=== PATIENT | female | born 1990 | race Caucasian/White ===

== ENCOUNTER 2016-09-19 23:10 | Inpatient (IN) | payer SELFPAY ==
[~2016-09-19] VITALS: Ht 172.7 cm; Wt 48.7 kg
[~2016-09-19 23:10] MED LIST: CIPR500T2 PO; OXYC-360 PO; PYRI200T4 PO; Z.0.NO CURRENT MEDS
[2016-09-20] MEDS ORDERED: MAGNESIUM HYDROXIDE SUSP 30 ML CUP PO PRN (02:15)
[2016-09-20] MEDS ORDERED: ALUMINUM/MAGNESIUM/SIMETH 30 ML CUP PO PRN (02:15)
[2016-09-20] MEDS ORDERED: LORazepam 2 MG/ML VIAL IM PRN (02:15)
[2016-09-20] MEDS ORDERED: LORazepam 1 MG TAB PO PRN (02:15)
[2016-09-20] MEDS ORDERED: traZODone HCL 50 MG TAB PO PRN (02:15)
[2016-09-20] MEDS ORDERED: BENZTROPINE MESYLATE 2 MG/2 ML VIAL IM PRN (02:15)
[2016-09-20 02:31] VITALS: BP 115/62; PULSE 83; RESP 16; TEMP 97.3; O2SAT 99
[2016-09-20] MEDS: NICOTINE 21 MG/24 HR PATCH T-DERMAL SCH (08:42)
[2016-09-20] MEDS: ACETAMINOPHEN 325 MG TAB PO PRN ×2 (09:07→18:45)
[2016-09-20 10:06] LABS: BHCG SCREEN QUALITATIVE LESS THAN 1 MIU/ML (0-5)
--- NOTE | 2016-09-20 14:32 | HHI.HP ---
Provisional Diagnosis Admission Date September 19, 2016 at 23:10 Richardson I. 1. PTSD, chronic 2. Mixed anxiety disorder 3. Mood disorder Richardson II. Deferred Richardson V. GAF is 30 presently Certification of Person's Competence To Provide Express and Informed Consent I have personally examined Alissa Regan , a person being served at [facility] on, September 20, 2016 14:18. Express and informed consent means consent voluntarily given in writing, by a competent person, after sufficient explanation and disclosure of the subject matter involved to enable the person to make a knowing and willful decision without any element of force, fraud, deceit, duress, or other form of constraint or coercion. This person is 18 years of age or older, is not now known to be incompetent to consent to treatment with a guardian advocate, and does not have a health care surrogate or proxy currently making medical treatment decisions. I have found this person to be one of the following: [x] Competent to provide express and informed consent, as defined above, for voluntary admission to this facility and is competent to provide express and informed consent for treatment. He/she has the consistent capacity to make well reasoned, willful, and knowing decisions concerning his or her medical or mental health treatment. The person fully and consistently understands the purpose of the admission for examination/placement and is fully capable of personally exercising all rights assured under [place] Incompetent to provide express and informed consent to voluntary admission, and this is incompetent to provide express and informed consent to treatment. The person must be transferred to involuntary status and a petition for a guardian advocate filed with the Circuit Court. [] Refusing to provide express and informed consent to voluntary admission but is competent to provide express and informed consent for treatment. The person must be discharged or transferred to involuntary status. Form shall be completed within 24 hours of a person's arrival at the receiving facility and filed in the clinical record of each person: 1. Admitted on a voluntary basis 2. Permitted to provide express and informed consent to his/her own treatment 3. Allowed to transfer from involuntary to voluntary status 4. Prior to permitting a person to consent to his or her own treatment after having been previously found incompetent to consent to treatment. History of Present Illness Capacity: Has Capacity HPI Ms. Regan is a 26-year-old female with a reported history of PTSD from the of her first born son who presents in transfer under a [place] act from [facility]. Documentation from [facility] reviewed. [place] act alleges that the patient intentionally passed out in a full bathtub and was endorsing suicidal ideation. Reviewing are on electronic medical record , I see no prior psychiatric contact within our system. Patient seen and examined with nurse. Chart reviewed. Case discussed with nursing staff. On my examination today, the patient presents as extremely anxious. She says that she has been experiencing nightmares, flashbacks and hyperarousal related to her posttraumatic stress. She also has been having the sensation of people walking up to her and seeing "pink dots." No other hallucinatory experiences. No delusional beliefs. She has been feeling tearful and somewhat depressed. She endorses recent suicidal ideation although she denies any urge to hurt herself on the inpatient psychiatric unit. Speech is somewhat pressured and thought process circumstantial, but this seems to have an anxious more than a hypomanic or manic quality. I can elicit no other symptoms of hypomania or marlon. The remainder of the psychiatric ROS is negative. Past psychiatric history: Patient reports a history of PTSD. She reports that she is prescribed Klonopin 2 or 3 times a day as well as Ativan twice a day by a psychiatrist based in [place] with whom she no longer follows. She says that she was admitted psychiatrically one or 2 years ago in [place]. She endorses a history of suicide attempt by trying to cut herself. She reports prior trials of Seroquel, doxepin and trazodone as well as Lamictal, and she is reportedly allergic to the last of these. Family history: The patient reports that her mother has a history of sleep difficulty and anxiety. No other reported family psychiatric history. Chemical dependency history: No reported abuse of drugs or alcohol. Social history: Patient is . She has a 3-year-old daughter. She reports that she lost her firstborn son. 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 She served in the [employer] but had a medical discharge. No reported access to guns or firearms. Review of Systems Except as stated in HPI: all other systems reviewed are Neg Past Psych History Psychological trauma history See above Violence risk - others (6 mos) Lower risk Violence risk - self (6 mos) Elevated Substance Abuse History Drugs/Alcohol past 12 months See above Past Family Social History Coded Allergies: No Known Allergies (Verified , 09/20/16) Past Medical History See electronic medical record Current Medications Medications (Trade) Dose Ordered Sig/Terence Route Start Time Stop Time Status Last Admin (Ativan) 1 mg Q6H PRN PO 09/20/16 02:15 09/20/16 09:07 (Ativan Inj) 1 mg Q6H PRN IM 09/20/16 02:15 (Cogentin) 1 mg Q12H PRN PO 09/20/16 02:15 (Cogentin Inj) 1 mg Q12H PRN IM 09/20/16 02:15 (Desyrel) 50 mg HS PRN PO 09/20/16 02:15 (Tylenol) 650 mg Q4H PRN PO 09/20/16 02:15 09/20/16 09:07 (Milk Of Magnesia Liq) 30 ml DAILY PRN PO 09/20/16 02:15 (Mag-Al Plus Susp Liq) 30 ml Q6H PRN PO 09/20/16 02:15 (Habitrol 21 Mg Patch.24 Hr) 1 patch DAILY T-DERMAL 09/20/16 09:00 09/20/16 08:42 Family History See above Social History See above Patient's Strengths (min. 2) In a monitored setting. Verbally fluent. Physical Exam Physical examination completed at referring hospital. On my examination today, the patient appears to be well-nourished and well-developed and in no acute physical distress. No motor abnormalities noted. No signs of withdrawal noted. Laboratories and vital signs reviewed: Vital Signs Vital Signs Date Time Temp Pulse Resp B/P Pulse Ox O2 Delivery O2 Flow Rate FiO2 09/20/16 02:31 97.3 83 16 115/62 99 Lab Results Laboratories from outside hospital reviewed: CBC is unremarkable. CMP is unremarkable. TSH is mildly elevated. Urinalysis reveals 11 white blood cells and 2+ leukocyte esterase. Urine toxicology positive for benzodiazepines. Alcohol level undetectable. Mental Status Examination Patient is casually dressed. She is well groomed. She is awake and alert and oriented 3. No evidence of delirium. No abnormal motor movements noted. Speech is somewhat pressured but otherwise within normal limits for tone and volume. Lying which and fund of knowledge seem average. Mood is somewhat depressed and affect is consistent with stated mood. Thought process circumstantial. No evident delusions. Some recent hallucinatory experiences as detailed above, no current audiovisual hallucinations. Endorses suicidal ideation without specific urge to hurt herself on the inpatient psychiatric unit. No homicidal ideation. Insight and judgment are fair. Assessment & Plan Problem List: (1) Chronic post-traumatic stress disorder (PTSD) ICD Code: F43.12 (2) Other mixed anxiety disorders ICD Code: F41.3 (3) Mood disorder ICD Code: F39 Assessment & Plan This is a 26-year-old female with psychiatric history as detailed above who presents in transfer from outside hospital under a [place] act. On my examination today, the patient reports symptoms consistent with high anxiety and posttraumatic stress. There also is an affective component, and I suspect this reflects unipolar depression more than bipolar depression although the latter is certainly in the differential. Patient also had thyroid abnormalities noted at outside hospital and so follow-up thyroid testing will be needed. Patient requires psychiatric hospitalization at this time for safety , observation and stabilization. Admit inpatient. Voluntary status. Check TFTs. I will treat initially as for anxiety/PTSD. Lexapro 10 mg daily. I will continue patient's Klonopin 1 mg 3 times daily as needed but will not additionally prescribe the Ativan. Instead, we'll try to use gabapentin off label for anxiety, 300 mg 3 times daily with plans to titrate to effect. Cogentin as needed for EPS, Benadryl as needed for sleep. Vitals every shift. Counselor to see. Disposition planning. Estimated length of stay: 5-7 days. Discharge Planning Pending psychiatric stabilization Request HC Surrog/Guard Advoc?: No Tim Jones MD September 20, 2016 14:32
[2016-09-20] MEDS ORDERED: diphenhydrAMINE HCL 50 MG CAP PO PRN (14:45)
[2016-09-20 16:49] LABS: FREE T4 1.03 NG/DL (0.76-1.46)
[2016-09-20 18:00] VITALS: BP 131/86; PULSE 100; RESP 16; TEMP 97.5; O2SAT 97
[2016-09-20] MEDS: ESCITALOPRAM OXALATE 10 MG TAB PO SCH (20:08)
[2016-09-21 06:32] VITALS: BP 147/87; PULSE 86; RESP 17; TEMP 97.7; O2SAT 95
[2016-09-21] MEDS ORDERED: ESCITALOPRAM OXALATE 10 MG TAB PO SCH (09:00)
[2016-09-21] MEDS: NICOTINE 21 MG/24 HR PATCH T-DERMAL SCH (09:00)
[2016-09-21 09:10] LABS: ANION GAP 6 MEQ/L (5-15); BICARBONATE 29.3 MEQ/L (21.0-32.0); BLOOD UREA NITROGEN 10 MG/DL (7-18); CHLORIDE 106 MEQ/L (98-107); GLOMERULAR FILTRATION RATE 101 ML/MIN (>89); HDL CHOLESTEROL 29.3 MG/DL (40.0-60.0); LDL CHOLESTEROL 105 MG/DL (0-99); SODIUM (NA) 141 MEQ/L (136-145)
[2016-09-21] MEDS: GABAPENTIN 300 MG CAP PO SCH ×3 (09:15→18:22)
[2016-09-21] MEDS: ESCITALOPRAM OXALATE 10 MG TAB PO SCH (09:15)
[2016-09-21] MEDS: clonazePAM 1 MG TAB PO PRN ×3 (09:26→22:00)
[2016-09-21 09:55] LABS: HEMOGLOBIN A1a 1.2 %; HEMOGLOBIN A1b 0.7 %; HEMOGLOBIN Ao 86.1 %; HEMOGLOBIN F 1.2 %; HEMOGLOBIN LA1C 1.8 %; HEMOGLOBIN P3 3.3 %
--- NOTE | 2016-09-21 11:11 | HHI.PYPN ---
Subjective Remarks Patient was seen and case discussed with nursing. Per nursing patient is taking part in activities and was noted to be less anxious. Patient is complaining of nausea when taking her medications, including with food. She is asking for medication. Has not had any vomiting. Complaining of which she describes as a night hair with flashbacks and nightmares last night. Says she has suicidal thoughts that are chronic, in the back of her head. Denies a plan or intent. Not eating well because she is a vegetarian Objective Alert: Yes [place]: Person, Place, Date, Situation Mood: Anxious, Depressed Affect: Other (anxious) Memory Intact: Immediate (intact) Hallucinations: Auditory (denies) Delusions: No Delusion Type: Other Suicidal: Ideation (denies) Homicidal: Ideation (denies) Insight/Judgment Fair Labs Test 09/21/16 08:00 Sodium Level 141 MEQ/L Potassium Level 4.0 MEQ/L Chloride Level 106 MEQ/L Carbon Dioxide Level 29.3 MEQ/L Anion Gap 6 MEQ/L Blood Urea Nitrogen 10 MG/DL Creatinine 0.71 MG/DL Estimat Glomerular Filtration 101 ML/MIN Rate Random Glucose 76 MG/DL Hemoglobin A1c 5.3 % Calcium Level 8.5 MG/DL Triglycerides Level 89 MG/DL Cholesterol Level 152 MG/DL LDL Cholesterol 105 MG/DL HDL Cholesterol 29.3 MG/DL Cholesterol/HDL Ratio 5.18 RATIO Vitals/IOs Vital Signs Date Time Temp Pulse Resp B/P Pulse Ox O2 Delivery O2 Flow Rate FiO2 09/21/16 06:32 97.7 86 17 147/87 95 Assessment & Plan Problem List: (1) Chronic post-traumatic stress disorder (PTSD) ICD Code: F43.12 (2) Other mixed anxiety disorders ICD Code: F41.3 (3) Mood disorder ICD Code: F39 Assessment & Plan Add when necessary Zofran for nausea. Nursing will work on getting her dietary requests accommodated. Continue current treatment plan Justification for Cont. Inpt. Patient will decompensate in a less restrictive setting Request HC Surrog/Guard Advoc?: No Ricki Samuels DO September 21, 2016 11:11
[2016-09-21] MEDS: ONDANSETRON ODT 4 MG TAB PO PRN ×3 (11:41→23:50)
[2016-09-21 21:47] VITALS: BP 141/95; PULSE 77; RESP 17; TEMP 98.6; O2SAT 96
[2016-09-21] MEDS: ACETAMINOPHEN 325 MG TAB PO PRN (23:51)
[2016-09-22 06:12] VITALS: BP 108/63; PULSE 76; RESP 16; TEMP 98
[2016-09-22] MEDS: GABAPENTIN 300 MG CAP PO SCH ×3 (08:38→17:00)
[2016-09-22] MEDS: ONDANSETRON ODT 4 MG TAB PO PRN (08:38)
[2016-09-22] MEDS: ESCITALOPRAM OXALATE 10 MG TAB PO SCH ×3 (08:38→08:59)
[2016-09-22] MEDS: ACETAMINOPHEN 325 MG TAB PO PRN (08:39)
[2016-09-22] MEDS: NICOTINE 21 MG/24 HR PATCH T-DERMAL SCH ×2 (08:58→09:14)
[2016-09-22] MEDS: clonazePAM 1 MG TAB PO PRN ×2 (09:14→15:30)
--- NOTE | 2016-09-22 14:41 | HHI.PYPN ---
Subjective Remarks Patient reports extreme anxiety and multiple somatic complaints. She apparently or reportedly was throwing up this morning and her nurse asked for the Zofran to be given before meals. She is also complaining the Lexapro was giving her tremendous side effects. This physician recommended Abilify and the patient agrees. Review of Systems Except as stated in HPI: all other systems reviewed are Neg Objective Alert: Yes [place]: Person, Place, Date, Situation Mood: Anxious, Depressed Affect: Other (anxious) Memory Intact: Immediate (intact) Hallucinations: Auditory (denies) Delusions: No Delusion Type: Other Suicidal: Ideation (denies) Homicidal: Ideation (denies) Insight/Judgment Impaired Vitals/IOs Vital Signs Date Time Temp Pulse Resp B/P Pulse Ox O2 Delivery O2 Flow Rate FiO2 09/22/16 06:12 98.0 76 16 108/63 09/21/16 21:47 96 Assessment & Plan Problem List: (1) Chronic post-traumatic stress disorder (PTSD) ICD Code: F43.12 (2) Other mixed anxiety disorders ICD Code: F41.3 (3) Mood disorder ICD Code: F39 Assessment & Plan Estimated LOS: 3 days patient hoping to be stabilized on medications shortly. Will DC Lexapro, start Abilify and change Zofran to before meals. Justification for Cont. Inpt. Continues to report suicidal ideation. Request HC Surrog/Guard Advoc?: No Subhash Cao MD September 22, 2016 14:40
[2016-09-22] MEDS: ONDANSETRON ODT 4 MG TAB PO SCH (17:00)
[2016-09-22 18:00] VITALS: BP 106/73; PULSE 89; RESP 17; TEMP 98.1; O2SAT 98
[2016-09-22] MEDS: clonazePAM 1 MG TAB PO SCH (21:32)
[2016-09-22] MEDS: ARIPiprazole 2 MG TAB PO SCH (21:32)
[2016-09-23 04:39] VITALS: BP 105/59; PULSE 58; RESP 18; TEMP 97.9; O2SAT 97
[2016-09-23] MEDS: ONDANSETRON ODT 4 MG TAB PO SCH ×3 (08:00→16:43)
[2016-09-23] MEDS: GABAPENTIN 300 MG CAP PO SCH ×3 (09:00→18:07)
[2016-09-23] MEDS: clonazePAM 1 MG TAB PO SCH ×2 (09:00→21:00)
[2016-09-23] MEDS: NICOTINE 21 MG/24 HR PATCH T-DERMAL SCH (09:01)
[2016-09-23 18:04] VITALS: BP 119/63; PULSE 113; RESP 18; TEMP 97.8; O2SAT 96
[2016-09-23] MEDS: BENZTROPINE MESYLATE 1 MG TAB PO PRN (18:15)
[2016-09-23] MEDS: ARIPiprazole 2 MG TAB PO SCH (21:00)
[2016-09-23] MEDS: ACETAMINOPHEN 325 MG TAB PO PRN (22:10)
[2016-09-24 05:59] VITALS: BP 97/60; PULSE 79; RESP 18; TEMP 97.9
[2016-09-24] MEDS: ONDANSETRON ODT 4 MG TAB PO SCH ×3 (08:00→17:00)
[2016-09-24] MEDS: clonazePAM 1 MG TAB PO SCH ×2 (09:26→21:04)
[2016-09-24] MEDS: NICOTINE 21 MG/24 HR PATCH T-DERMAL SCH (09:26)
[2016-09-24] MEDS: GABAPENTIN 300 MG CAP PO SCH ×3 (09:26→18:00)
--- NOTE | 2016-09-24 14:15 | HHI.PYPN ---
Subjective Remarks This is the progress note for September 23, 2016. Patient continues to express multiple physical and psychological complaints. She continues to report allergies to multiple medicines including Benadryl. She continues to report nursing staff was not giving her the right medication. Patient appears to be hysterical and manipulative. Review of Systems Except as stated in HPI: all other systems reviewed are Neg Objective Alert: Yes [place]: Person, Place, Date, Situation Mood: Anxious, Depressed Affect: Other (anxious) Memory Intact: Immediate (intact) Hallucinations: Auditory (denies) Delusions: No Delusion Type: Other Suicidal: Ideation (denies) Homicidal: Ideation (denies) Insight/Judgment Impaired Vitals/IOs Vital Signs Date Time Temp Pulse Resp B/P Pulse Ox O2 Delivery O2 Flow Rate FiO2 09/24/16 05:59 97.9 79 18 97/60 09/23/16 18:04 96 Assessment & Plan Problem List: (1) Chronic post-traumatic stress disorder (PTSD) ICD Code: F43.12 (2) Other mixed anxiety disorders ICD Code: F41.3 (3) Mood disorder ICD Code: F39 Assessment & Plan Estimated LOS: 3 days continue to provide medication management to attempt to stabilize patient's mood and behavior. Justification for Cont. Inpt. Likely to decompensate at lower level of care. Request HC Surrog/Guard Advoc?: No Subhash Cao MD September 24, 2016 14:15
--- NOTE | 2016-09-24 14:19 | HHI.PYPN ---
Subjective Remarks Patient's Abilify discontinued because she feels she is allergic. She is complaining of neck and throat pain. Patient started on Depakote or mood stabilizing properties. Also requesting an increase in Neurontin, which was performed by this physician. Review of Systems Except as stated in HPI: all other systems reviewed are Neg Musculoskeletal: COMPLAINS OF: Joint pain, Muscle aches, Neck pain Objective Alert: Yes [place]: Person, Place, Date, Situation Mood: Anxious, Depressed Affect: Other (anxious) Memory Intact: Immediate (intact) Hallucinations: Auditory (denies) Delusions: No Delusion Type: Other Suicidal: Ideation (denies) Homicidal: Ideation (denies) Insight/Judgment Impaired. Vitals/IOs Vital Signs Date Time Temp Pulse Resp B/P Pulse Ox O2 Delivery O2 Flow Rate FiO2 09/24/16 05:59 97.9 79 18 97/60 09/23/16 18:04 96 Assessment & Plan Problem List: (1) Chronic post-traumatic stress disorder (PTSD) ICD Code: F43.12 (2) Other mixed anxiety disorders ICD Code: F41.3 (3) Mood disorder ICD Code: F39 Assessment & Plan Estimated LOS: 3 days patient's medications changed to try to address her anxiety and depression. She will now take Depakote and increased Neurontin. Abilify discontinued. Justification for Cont. Inpt. Likely to decompensate at lower level of care. Request HC Surrog/Guard Advoc?: No Subhash Cao MD September 24, 2016 14:19
[2016-09-24 17:34] VITALS: BP 127/92; PULSE 114; RESP 17; TEMP 99; O2SAT 93
[2016-09-24] MEDS: DIVALPROEX SODIUM E.R. 250 MG TAB PO SCH ×2 (17:50→21:04)
[2016-09-24] MEDS: ACETAMINOPHEN 325 MG TAB PO PRN (21:06)
[2016-09-24 21:40] VITALS: BP 102/72; PULSE 97; RESP 21; TEMP 97.6; O2SAT 100
[2016-09-25 06:13] VITALS: BP 101/62; PULSE 76; RESP 18; TEMP 97.8; O2SAT 98
[2016-09-25] MEDS: GABAPENTIN 300 MG CAP PO SCH ×3 (08:24→18:13)
[2016-09-25] MEDS: DIVALPROEX SODIUM E.R. 250 MG TAB PO SCH ×2 (08:24→23:05)
[2016-09-25] MEDS: clonazePAM 1 MG TAB PO SCH ×2 (08:24→21:00)
[2016-09-25] MEDS: ONDANSETRON ODT 4 MG TAB PO SCH ×3 (08:24→15:58)
[2016-09-25] MEDS: NICOTINE 21 MG/24 HR PATCH T-DERMAL SCH (08:28)
[2016-09-25] MEDS ORDERED: PADIMATE (CHAPSTICK) 4.5 GM TUBE TOPICAL PRN (17:45)
[2016-09-25 18:10] VITALS: BP 138/87; PULSE 132; RESP 19; TEMP 98.1; O2SAT 99
[2016-09-25 19:36] VITALS: BP 80/49; PULSE 92; TEMP 97.2; O2SAT 97
[2016-09-25 20:10] VITALS: BP 124/77; PULSE 70; RESP 17; TEMP 99.1; O2SAT 97
[2016-09-25] MEDS: PRAZOSIN HCL 1 MG CAP PO SCH (21:00)
[2016-09-25] MEDS: ACETAMINOPHEN 325 MG TAB PO PRN (23:04)
[2016-09-25] MEDS: traZODone HCL 100 MG TAB PO SCH (23:04)
[2016-09-25] MEDS: BENZTROPINE MESYLATE 1 MG TAB PO PRN (23:19)
[2016-09-25 23:54] VITALS: BP 104/76; PULSE 89; RESP 20; TEMP 98.3; O2SAT 98
[2016-09-26 06:08] VITALS: BP 107/52; PULSE 80; RESP 18; TEMP 98.3; O2SAT 95
[2016-09-26] MEDS: ONDANSETRON ODT 4 MG TAB PO SCH ×3 (08:00→17:15)
[2016-09-26] MEDS: DIVALPROEX SODIUM E.R. 250 MG TAB PO SCH ×2 (08:11→20:15)
[2016-09-26] MEDS: GABAPENTIN 300 MG CAP PO SCH ×3 (08:11→17:15)
[2016-09-26] MEDS: clonazePAM 1 MG TAB PO SCH ×2 (08:11→20:15)
[2016-09-26] MEDS: NICOTINE 21 MG/24 HR PATCH T-DERMAL SCH (09:00)
[2016-09-26 10:00] VITALS: BP 104/68; PULSE 92; RESP 19; TEMP 97.2
[2016-09-26 14:00] VITALS: BP 92/63; PULSE 90; RESP 16; TEMP 98.5; O2SAT 95
--- NOTE | 2016-09-26 14:09 | HHI.PYPN ---
Subjective Remarks Patient seen and examined with RN in coverage for Dr. Cao. Chart reviewed. Case discussed with RN who reports that the patient is quite somatic and dramatic and had a "meltdown" yesterday afternoon that was felt to be attention- seeking. For me today, patient enters the interview room with an antalgic gait. She appears somewhat sedated with half-closed eyes, but she insists "I feel perfectly awake and fine, but my eyelids are droopy." She reports that this began after a fall that she took yesterday. She complains of head and R shoulder pain from the fall. She also reports sweating and enuresis last night , although this may have been related to a nightmare. She also believes that the Vistaril is causing a flashing effect in her head like "white lightning" and she agrees with discontinuing this medication. Borderline personality traits are prominent, and the patient does engage in flagrant staff splitting, describing Dr. Cao and "some of the staff" as "so nice" and others as actively malevolent. 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 No other reported side effects from medications. No other physical complaints. Review of Systems ROS Limitations: Poor Historian Except as stated in HPI: all other systems reviewed are Neg Objective Alert: Yes [place]: Person, Place, Date, Situation Mood: Anxious Affect: Restricted (dysphoric) Memory Intact: Comment (Not formally assessed but seems generally intact on clinical exam.) Hallucinations: Other (No AVH) Delusions: No Delusion Type: Other (No delusions) Suicidal: Ideation (No SI) Homicidal: Ideation (No HI) Insight/Judgment Poor Remarks Besides antalgic gait, no other abnormal motor movements noted. TP linear. Speech wnl for rate, tone, volume. Grooming and hygiene fair. Labs Labs reviewed. Vitals/IOs Vital Signs Date Time Temp Pulse Resp B/P Pulse Ox O2 Delivery O2 Flow Rate FiO2 09/26/16 10:00 97.2 92 19 104/68 09/26/16 06:08 95 Assessment & Plan Problem List: (1) Chronic post-traumatic stress disorder (PTSD) ICD Code: F43.12 (2) Other mixed anxiety disorders ICD Code: F41.3 (3) Mood disorder ICD Code: F39 Assessment & Plan Patient's presentation today does have a dramatic, overwrought quality. I certainly would not want to feed into patient's personality dysfunction by attending too closely to her somatic preoccupations. However, nursing notes do indicate she was found on the floor yesterday afternoon, and she does have some abnormal exam findings (namely the gait and eyelids) that could be affected but also might be a manifestation of an organic issue. I will check an urgent head CT and R shoulder X-Ray and consult the hospitalist for further management. I will discontinue the Vistaril. Continue other medications and care as ordered. Justification for Cont. Inpt. Potential complicating conditions. Medication change (Vistaril d/c'd). High risk for decompensation in a less restrictive environment. Discharge Planning Per Dr. Cao. Request HC Surrog/Guard Advoc?: No Tim Jones MD September 26, 2016 14:08
--- NOTE | 2016-09-26 15:14 | RADRPT ---
EXAM DATE/TIME: 09/26/2016 14:58 [facility] COMPARISON: No previous studies available for comparison. INDICATIONS : Fall hit right side of head now having head pain and sensitive to light . RADIATION DOSE: 56.77 CTDIvol (mGy) MEDICAL HISTORY : None SURGICAL HISTORY : None. ENCOUNTER: Initial ACUITY: 1 day PAIN SCALE: 6/10 LOCATION: Right cranial TECHNIQUE: Multiple contiguous axial images were obtained of the head. Using automated exposure control and adj ustment of the mA and/or kV according to patient size, radiation dose was kept as low as reasonably a chievable to obtain optimal diagnostic quality images. FINDINGS: CEREBRUM: The ventricles are normal for age. No evidence of midline shift, mass lesion, hemorrhage or acute in farction. No extra-axial fluid collections are seen. POSTERIOR FOSSA: The cerebellum and brainstem are intact. The 4th ventricle is midline. The cerebellopontine angle i s unremarkable. EXTRACRANIAL: The visualized portion of the orbits is intact. SKULL: The calvaria is intact. No evidence of skull fracture. CONCLUSION: No acute intracranial disease. Gene Wallace MD on September 26, 2016 at 15:11 Board Certified Radiologist. This report was verified electronically.
--- NOTE | 2016-09-26 15:35 | RADRPT ---
EXAM DATE/TIME: 09/26/2016 14:51 [facility] COMPARISON: No previous studies available for comparison. INDICATIONS : Right shoulder pain post fall today MEDICAL HISTORY : None. SURGICAL HISTORY : None. ENCOUNTER: Initial ACUITY: 1 day PAIN SCORE: 5/10 LOCATION: Right entire shoulder FINDINGS: Two view examination of the right shoulder demonstrates no evidence of fracture or dislocation. The glenohumeral and acromioclavicular joints are maintained. Bony mineralization is normal. CONCLUSION: No acute disease. Leonardo Mccarthy MD on September 26, 2016 at 15:32 Board Certified Radiologist. This report was verified electronically.
--- NOTE | 2016-09-26 16:27 | PD.CONS ---
HPI Service [facility] Hospitalists Consult Requested By Dr Cao Reason for Consult Multiple somatic complaints. C/o head and R shoulder pain. C/o eyelids drooping. C/o enuresis. Primary Care Physician No Primary Care Physician Diagnoses: History of Present Illness The patient is a frail young 26 yo female with psychiatric illness, who reports h.o fibromyalgia, h/o seizure disorder in the past and says eh was taking Keppra for a short period of time and subsequently was told she doesn't have seizures and currently not taking any meds. The hospitalist is c.The patient is in the wheelchair since admission, she was able to walk prior to admission. She also complains of generalized pain says because of her fibromyalgia. Since the psychiatry is not giving her any pain medications. She also complained of left shoulder pain and says she could not movement until yesterday. X-ray of the shoulder doesn't show any fracture or any abnormality. Patient also says she doesn't have much appetite, however she did not's weight, her BMI is very low 16.6. There is no nausea, vomiting, abdominal pain, diarrhea or constipation. No problems swallowing. Denies chest pain or palpitations. Says she has increasing urination lately but denies any pain with urination, burning, fever or chills Review of Systems Except as stated in HPI: all other systems reviewed are Neg Past Family Social History Allergies: Coded Allergies: Benadryl (Verified Allergy, Unknown, 09/20/16) Lamictal (Unverified Allergy, Unknown, Rash, 09/20/16) Past Medical History Psychiatric illness Fibromyalgia Questionable seizures Past Surgical History Reported Medications Reported Meds & Active Scripts Active Family History Mother with chronic pain and dependent on pain medications Father had MIs unspecified age Social History Denies alcohol use or illicit drug use. Admits smoking 1 pack per day since young age. Physical Exam Vital Signs Vital Signs Date Time Temp Pulse Resp B/P Pulse Ox O2 Delivery O2 Flow Rate FiO2 09/26/16 14:00 98.5 90 16 92/63 95 09/26/16 10:00 97.2 92 19 104/68 09/26/16 06:08 98.3 80 18 107/52 95 09/25/16 23:54 98.3 89 20 104/76 98 09/25/16 20:10 99.1 70 17 124/77 97 09/25/16 19:36 97.2 92 80/49 97 09/25/16 18:10 98.1 132 19 138/87 99 Physical Exam GENERAL: This is a frail 26-year-old female well-nourished, well-developed patient, in no apparent distress. SKIN: No rashes, ecchymoses or lesions. Cool and dry. HEAD: Atraumatic. Normocephalic. No temporal or scalp tenderness. EYES: Pupils equal round and reactive. Extraocular motions intact. No scleral icterus. No injection or drainage. ENT: Nose without bleeding, purulent drainage or septal hematoma. Throat without erythema, tonsillar hypertrophy or exudate. Uvula midline. Airway patent. NECK: Trachea midline. No JVD or lymphadenopathy. Supple, nontender, no meningeal signs. CARDIOVASCULAR: Regular rate and rhythm without murmurs, gallops, or rubs. RESPIRATORY: Clear to auscultation. Breath sounds equal bilaterally. No wheezes , rales, or rhonchi. GASTROINTESTINAL: Abdomen soft, non-tender, nondistended. No hepato-splenomegaly , or palpable masses. No guarding. MUSCULOSKELETAL: Extremities without clubbing, cyanosis, or edema. No joint tenderness, effusion, or edema noted. No calf tenderness. Negative Homans sign bilaterally. NEUROLOGICAL: Awake and alert. Cranial nerves grossly intact. Moves arms. Doesn 't move legs. Sensation intact Normal speech. Imaging Last Impressions Shoulder X-Ray 09/26/16 0000 Signed Impressions: Service Date/Time: Monday, September 26, 2016 14:51 - CONCLUSION: No acute disease. Leonardo Mccarthy MD Head CT 09/26/16 0000 Signed Impressions: Service Date/Time: Monday, September 26, 2016 14:58 - CONCLUSION: No acute intracranial disease. Gene Wallace MD Assessment and Plan Assessment and Plan 26-year-old female with past psychiatric history Psychosis. Management per psychiatry Multiple somatic complaints. C/o head and R shoulder pain. C/o eyelids drooping. C/o enuresis. In the wheelchair, complaints of weakness LE and fibromyalgia, pain all over her body X-ray of the right shoulder doesn't show Check TSH Check UA BMI 16.6. Check prealbumin Consult neurology Encourage PO intake. Consult workers compensation defense attorney Symptoms might be psychosomatic. Thank you for this consultation. Will follow along Discussed Condition With Patient, nurse Alison Pepe MD September 26, 2016 16:27
[2016-09-26 18:00] VITALS: BP 135/77; PULSE 103; RESP 18; TEMP 98.7; O2SAT 100
[2016-09-26] MEDS: PRAZOSIN HCL 1 MG CAP PO SCH (20:15)
[2016-09-26] MEDS: traZODone HCL 100 MG TAB PO SCH ×2 (20:15→21:00)
[2016-09-27 05:33] VITALS: BP 93/60; PULSE 99; RESP 16; TEMP 97.7; O2SAT 96
[2016-09-27] MEDS: NICOTINE 21 MG/24 HR PATCH T-DERMAL SCH (08:10)
[2016-09-27] MEDS: DIVALPROEX SODIUM E.R. 250 MG TAB PO SCH ×2 (08:11→21:23)
[2016-09-27] MEDS: ONDANSETRON ODT 4 MG TAB PO SCH ×3 (08:11→16:21)
[2016-09-27] MEDS: GABAPENTIN 300 MG CAP PO SCH ×3 (08:11→16:21)
[2016-09-27] MEDS: clonazePAM 1 MG TAB PO SCH ×2 (08:12→21:23)
--- NOTE | 2016-09-27 11:48 | HHI.PYPN ---
Subjective Remarks Patient seen and examined with nurse in weekend coverage. Chart reviewed. Case discussed with nursing staff who notes patient's ongoing poor nutrition. Charting indicates patient is taking 100% of meals, but patient herself tells me that she is giving a good portion of her food away. She does endorse a history of body image issues but denies any restriction or purging behavior prior to admission. Says she is not eating now simply because appetite is poor. Borderline personality traits, staff splitting and somatic preoccupation all continue unabated. No reported side effects from current psychotropics. Review of Systems ROS Limitations: Poor Historian Except as stated in HPI: all other systems reviewed are Neg Objective Alert: Yes [place]: Person, Place, Date, Situation Mood: Anxious Affect: Restricted (remains dysphoric) Memory Intact: Comment (Not assessed) Hallucinations: Other (No AVH) Delusions: No Delusion Type: Other (No delusions) Suicidal: Ideation (No SI) Homicidal: Ideation (No HI) Insight/Judgment Poor Remarks No abnormal motor movements noted. Gait seems more steady today. TP generally linear. Labs Test 09/27/16 08:20 Thyroid Stimulating Hormone 2.740 uIU/ML 3rd Gen Last Impressions Shoulder X-Ray 09/26/16 0000 Signed Impressions: Service Date/Time: Monday, September 26, 2016 14:51 - CONCLUSION: No acute disease. Leonardo Mccarthy MD Head CT 09/26/16 0000 Signed Impressions: Service Date/Time: Monday, September 26, 2016 14:58 - CONCLUSION: No acute intracranial disease. Gene Wallace MD Labs and study impressions reviewed. Vitals/IOs Vital Signs Date Time Temp Pulse Resp B/P Pulse Ox O2 Delivery O2 Flow Rate FiO2 09/27/16 05:33 97.7 99 16 93/60 96 Assessment & Plan Problem List: (1) Chronic post-traumatic stress disorder (PTSD) Assessment & Plan: R/O eating disorder ICD Code: F43.12 (2) Other mixed anxiety disorders ICD Code: F41.3 (3) Mood disorder ICD Code: F39 Assessment & Plan Monitor PO intake closely. Calorie count x 3 days. Consult to the teller supervisor. Hospitalist compliance consultant input appreciated. Continue psychotropics as ordered. Continue other medications and care as ordered. Justification for Cont. Inpt. Complicating conditions (probable poor PO intake is likely dropping BP, limiting use of meds like Prazosin). High risk for decompensation in a less restrictive environment. Discharge Planning Per Dr. Cao Request HC Surrog/Guard Advoc?: No Tim Jones MD September 27, 2016 11:48
[2016-09-27] MEDS: BENZOCAINE 6 MG/MENTHOL 10 MG LOZENGE BUCCAL PRN (16:30)
[2016-09-27 17:09] LABS: BACTERIA, URINE MOD /hpf; BLOOD, URINE NEG (NEG); COMMENT (UR) CULTURE INDICATED; CULTURE IF INDICATED CULTURE INDICATED; GLUCOSE,URINE NEG (NEG); KETONE, URINE TRACE mg/dL (NEG); MUCUS URINE FEW /lpf (OCC); NITRITE,URINE NEG (NEG); SQUAMOUS EPITHELIAL CELL URINE 5 /hpf (0-5); URINE COLOR YELLOW (YELLW/STRAW)
[2016-09-27] MEDS: IBUPROFEN 400 MG TAB PO PRN ×2 (17:26→17:32)
[2016-09-27 18:04] VITALS: BP 106/70; PULSE 87; RESP 16; TEMP 98.2; O2SAT 100
[2016-09-27] MEDS: traZODone HCL 100 MG TAB PO SCH (21:00)
[2016-09-27] MEDS: PRAZOSIN HCL 1 MG CAP PO SCH (21:24)
[2016-09-28 06:15] VITALS: BP 94/64; PULSE 86; RESP 18; TEMP 95.8; O2SAT 95
[2016-09-28] MEDS: BENZOCAINE 6 MG/MENTHOL 10 MG LOZENGE BUCCAL PRN (06:15)
[2016-09-28] MEDS: ONDANSETRON ODT 4 MG TAB PO SCH ×4 (08:00→16:45)
[2016-09-28] MEDS: clonazePAM 1 MG TAB PO SCH ×3 (08:50→21:14)
[2016-09-28] MEDS: DIVALPROEX SODIUM E.R. 250 MG TAB PO SCH ×3 (08:50→21:14)
[2016-09-28] MEDS: GABAPENTIN 300 MG CAP PO SCH ×4 (08:50→18:43)
[2016-09-28] MEDS: NICOTINE 21 MG/24 HR PATCH T-DERMAL SCH (09:00)
--- NOTE | 2016-09-28 13:50 | HHI.PR ---
Subjective Remarks Follow-up visit depression, anxiety, poor appetite. Patient was reported to be having some behavioral issues and she was transferred to 2700. Patient seen and examined today. Tearful, crying. States she wants to go back to her regular floor and she is afraid of everybody in the unit right now. She states that she has been accused of not following any lives in his instructions. Patient states that the nurses doesn't like her in her previous unit that they made her go to 2700. Patient reports that she was eating okay however she is a vegetarian and that she would eat her yogurt and her other snacks in her room where there is no camera to see her doing it. Patient requesting to eat or go back to her unit wants to go home. Denies pain and discomfort. Denies SOB/ dyspnea. Denies chest pain, palpitations, headaches, dizziness. Denies fevers, chills, n/v/d. Denies hematuria, dysuria. Objective Vitals Vital Signs Date Time Temp Pulse Resp B/P Pulse Ox O2 Delivery O2 Flow Rate FiO2 09/28/16 06:15 95.8 86 18 94/64 95 09/27/16 18:04 98.2 87 16 106/70 100 I/O 09/27/16 09/27/16 09/27/16 09/28/16 09/28/16 09/28/16 06:59 14:59 22:59 06:59 14:59 22:59 Intake Total 120 ml 200 ml 120 ml Output Total 300 ml Balance 120 ml -100 ml 120 ml Intake Oral 120 ml 100 ml 120 ml Oral Supplement 100 ml Output Urine Total 300 ml # Voids 1 Imaging Last Impressions Shoulder X-Ray 09/26/16 0000 Signed Impressions: Service Date/Time: Monday, September 26, 2016 14:51 - CONCLUSION: No acute disease. Leonardo Mccarthy MD Head CT 09/26/16 0000 Signed Impressions: Service Date/Time: Monday, September 26, 2016 14:58 - CONCLUSION: No acute intracranial disease. Gene Wallace MD Objective Remarks GENERAL: This is thinly appearing, older than stated age, well-developed patient , tearful. SKIN: Warm and dry. HEENT: Normocephalic. Pupils equal round and reactive. Nose without bleeding. Airway patent. NECK: Trachea midline. No JVD. Supple. CARDIOVASCULAR: Regular rate and rhythm without murmurs, gallops, or rubs. RESPIRATORY: Clear to auscultation. Breath sounds equal bilaterally. No wheezes , rales, or rhonchi. GASTROINTESTINAL: Abdomen soft, non-tender, nondistended. Bowel Sounds normoactive x4. : Voiding without difficulty. MUSCULOSKELETAL: Extremities without clubbing, cyanosis, or edema. NEUROLOGICAL: Awake and alert. No focal neuro deficit. Moves all extremities. Pressured speech. A/P Problem List: (1) Chronic post-traumatic stress disorder (PTSD) ICD Code: F43.12 Status: Acute (2) Mood disorder ICD Code: F39 Status: Acute (3) Adult BMI <19 kg/sq m ICD Code: Z68.1 Status: Acute Assessment and Plan Patient is a 26-year-old white female primary medical history of seizure disorder, fibromyalgia, anxiety, depression, PTSD who came in under Montemayor act from [facility]. She is now admitted to inpatient psychiatry unit for further evaluation. Consulted for medical management. Mood disorder, PTSD, suicidal ideation - managed by psychiatry team Previously seen for multiple somatic complaints - Right shoulder x-ray within normal - CT of the head with no acute intracranial disease - No complaints at this time BMI less than 19 - On regular diet vegetarian - Patient states that she is eating well but is not observed by nurses in the opposite unit - Continue supplementation with ensures History of seizure disorder - Not on medication prior to admission DVT Prop ambulatory Discuss with patient, nursing Written by Dana Rey, acting as scribe for Dr. Villavicencio on 09/28/16 at 13:50. Attending Statement This note was transcribed by scribe Dana Rey. I, Dr. Alvin Villavicencio personally performed the history, physical exam, and medical decision making; and confirmed the accuracy of the information in the transcribed note. Authenticated by Dr. Alvin Villavicencio on 09/28/16 at 14:14. Dana Smallwood September 28, 2016 13:50 Alvin Villavicencio DO September 28, 2016 14:14
--- NOTE | 2016-09-28 14:32 | HHI.PYPN ---
Subjective Remarks Patient seen for psychiatric reevaluation patient is extremely labile, irritable , kind of disorganized. She is crying, incoherent, stating that nurses has been doing her life impossible. Review of Systems ROS Limitations: Uncooperative Objective Alert: Yes [place]: Person, Place, Date, Situation Mood: Anxious Affect: Labile Memory Intact: Comment (Not assessed) Hallucinations: Other (No AVH) Delusions: No Delusion Type: Other (No delusions) Suicidal: Ideation (No SI) Homicidal: Ideation (No HI) Insight/Judgment poor Labs Test 09/27/16 16:40 Urine Color YELLOW Urine Turbidity HAZY Urine pH 6.0 Urine Specific [place] 1.010 Urine Protein NEG mg/dL Urine Glucose (UA) NEG mg/dL Urine Ketones TRACE mg/dL Urine Occult Blood NEG Urine Nitrite NEG Urine Bilirubin NEG Urine Urobilinogen LESS THAN 2.0 MG/DL Urine Leukocyte Esterase MOD Urine WBC 6 /hpf Urine Squamous Epithelial 5 /hpf Cells Urine Bacteria MOD /hpf Urine Mucus FEW /lpf Microscopic Urinalysis Comment CULTURE INDICATED Date/Time Procedure Status Source Growth 09/27/16 16:40 Urine Culture - Preliminary Resulted Urine Clean Catch Gram Negative Andrew Vitals/IOs Vital Signs Date Time Temp Pulse Resp B/P Pulse Ox O2 Delivery O2 Flow Rate FiO2 09/28/16 06:15 95.8 86 18 94/64 95 Intake and Output 09/27/16 09/27/16 09/28/16 08:00 16:00 00:00 Intake Total 120 ml 200 ml Output Total 300 ml Balance 120 ml -100 ml Assessment & Plan Problem List: (1) Chronic post-traumatic stress disorder (PTSD) ICD Code: F43.12 (2) Other mixed anxiety disorders ICD Code: F41.3 (3) Mood disorder ICD Code: F39 Assessment & Plan Estimated LOS: days Justification for Cont. Inpt. patient needs to continue psychiatric hospitalization for stabilization. Request HC Surrog/Guard Advoc?: No Vitaliy Sloan MD September 28, 2016 14:32
[2016-09-28 18:41] VITALS: BP 119/67; PULSE 97; RESP 16; TEMP 98.4; O2SAT 98
[2016-09-28] MEDS ORDERED: QUEtiapine FUMARATE 25 MG TAB PO SCH (21:00)
[2016-09-28] MEDS: traZODone HCL 100 MG TAB PO SCH (21:00)
[2016-09-28] MEDS: PRAZOSIN HCL 1 MG CAP PO SCH (21:15)
[2016-09-29 06:13] VITALS: BP 97/56; PULSE 85; RESP 16; TEMP 97.5; O2SAT 97
[2016-09-29 07:59] LABS: BASOPHIL % 0.8 % (0.0-2.0); EOSINOPHIL # 0.1 TH/MM3 (0-0.4); EOSINOPHIL % 1.5 % (0.0-4.0); HEMO FLAGS DIFF FINAL; LYMPH % 33.7 % (9.0-44.0); LYMPHOCYTE # 1.8 TH/MM3 (1.0-4.8); MEAN CELL VOLUME 93.8 FL (80.0-100.0); MEAN CORPUSCULAR HEMOGLOBIN 30.6 PG (27.0-34.0); MEAN CORPUSCULAR HGB CONC 32.6 % (32.0-36.0); MONO % 7.6 % (0.0-8.0); NEUT % 56.4 % (16.0-70.0); PLATELET COUNT 227 TH/MM3 (150-450); RED BLOOD COUNT 3.94 MIL/MM3 (4.00-5.30); RED CELL DISTRIBUTION WIDTH 13.7 % (11.6-17.2); WHITE BLOOD COUNT 5.4 TH/MM3 (4.0-11.0)
[2016-09-29 08:30] LABS: ALT (GPT) 11 U/L (10-53); ANION GAP 8 MEQ/L (5-15); AST (GOT) 9 U/L (15-37); BICARBONATE 25.7 MEQ/L (21.0-32.0); BLOOD UREA NITROGEN 18 MG/DL (7-18); CHLORIDE 110 MEQ/L (98-107); GLOMERULAR FILTRATION RATE 88 ML/MIN (>89); POTASSIUM 3.7 MEQ/L (3.5-5.1); SODIUM (NA) 144 MEQ/L (136-145)
[2016-09-29 08:31] LABS: ALKALINE PHOSPHATASE 53 U/L (45-117); TOTAL BILIRUBIN ADULT 0.5 MG/DL (0.2-1.0)
[2016-09-29] MEDS ORDERED: SULFAMETHOXAZOLE-TRIMETHOPRIM DS 800-160 MG TAB PO SCH (09:00)
[2016-09-29] MEDS: DIVALPROEX SODIUM E.R. 250 MG TAB PO SCH (09:28)
[2016-09-29] MEDS: clonazePAM 1 MG TAB PO SCH (09:28)
[2016-09-29] MEDS: GABAPENTIN 300 MG CAP PO SCH ×2 (09:29→12:12)
[2016-09-29] MEDS: ONDANSETRON ODT 4 MG TAB PO SCH ×2 (09:29→12:12)
[2016-09-29] MEDS: NICOTINE 21 MG/24 HR PATCH T-DERMAL SCH (09:29)
[2016-09-29] MEDS ORDERED: KLON2TAB PO (09:59)
[2016-09-29] MEDS ORDERED: NEUR600T PO (09:59)
[2016-09-29] MEDS ORDERED: DEPA500T3 PO (09:59)
--- NOTE | 2016-09-29 10:13 | HHI.DS ---
Psychiatry Discharge Summary Inpatient Psychiatric care?: Yes Advance Directive: No Reason Not Provided: NO AVAILABLE Mental Health AdvanceDirective: No Health Care Proxy: No Admission Admission Date September 19, 2016 at 23:10 Admission Diagnosis: (1) Chronic post-traumatic stress disorder (PTSD) ICD Code: F43.12 (2) Other mixed anxiety disorders ICD Code: F41.3 (3) Mood disorder ICD Code: F39 Brief History Ms. Regan is a 26-year-old female with a reported history of PTSD from the of her first born son who presents in transfer under a Montemayor act from [facility]. Documentation from [facility] reviewed. Montemayor act alleges that the patient intentionally passed out in a full bathtub and was endorsing suicidal ideation. Reviewing are on electronic medical record , I see no prior psychiatric contact within our system. Patient seen and examined with nurse. Chart reviewed. Case discussed with nursing staff. On my examination today, the patient presents as extremely anxious. She says that she has been experiencing nightmares, flashbacks and hyperarousal related to her posttraumatic stress. She also has been having the sensation of people walking up to her and seeing "pink dots." No other hallucinatory experiences. No delusional beliefs. She has been feeling tearful and somewhat depressed. She endorses recent suicidal ideation although she denies any urge to hurt herself on the inpatient psychiatric unit. Speech is somewhat pressured and thought process circumstantial, but this seems to have an anxious more than a hypomanic or manic quality. I can elicit no other symptoms of hypomania or marlon. The remainder of the psychiatric ROS is negative. Past psychiatric history: Patient reports a history of PTSD. She reports that she is prescribed Klonopin 2 or 3 times a day as well as Ativan twice a day by a psychiatrist based in [place] with whom she no longer follows. She says that she was admitted psychiatrically one or 2 years ago in [place]. She endorses a history of suicide attempt by trying to cut herself. She reports prior trials of Seroquel, doxepin and trazodone as well as Lamictal, and she is reportedly allergic to the last of these. Family history: The patient reports that her mother has a history of sleep difficulty and anxiety. No other reported family psychiatric history. Chemical dependency history: No reported abuse of drugs or alcohol. Social history: Patient is . She has a 3-year-old daughter. She reports that she lost her firstborn son. 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 She served in the [employer] but had a medical discharge. No reported access to guns or firearms. Tobacco Use In Past 30 Days: 5 or More Cigarettes/Day Alcohol Use: Never Hospital Course Patient initially seen by me today upon transfer from 2600 unit to 2700 unit. Patient tearful labile on unit. States she is feeling afraid for her own safety being here. She does denies suicidality homicidality voices or visions. Says she does not want to be here that she wishes to be back with her and wanting to see her own doctors in [place]. I did talk to the patient's Mr. Lb Atkinson at [phone] he states they have been here from [place] for about 2 months that he has been with her for over 3 years and they have a 3-year-old daughter together. It appears prior to that she lost a child at one day from prematurity and also was lost her life due to complications of the delivery. She had been diagnosed in [place] with severe anxiety and panic attacks with history of hyperventilation and carpopedal spasms. He states she has never been suicidal or had suicidal intent or attempts. is also been in contact with patient's mother in [place]. They both feel that patient would be best served by returning to her home town of [place] to continue her mental health care or she does have services and providers. Patient's feels safe with patient going home with him today that he is willing to take full responsibility for this. We did discuss medications patient has been compliant with her Depakote gabapentin and Klonopin at 2 mg twice a day. We have not been able to check patient's Depakote blood level. I did discuss this with patient and patient's they're willing to take responsibility for that also. Thus I will allow patient to be discharged today though on an AMA basis due to the lack of Depakote blood level being determined. I will give him a two-week supply of the above medications. We'll set her up with a local follow-up posterior . Otherwise patient returns to [place] to follow mental health services in that location Results Blood Pressure 97 / 56 Vital Signs Date Time Temp Pulse Resp B/P Pulse Ox O2 Delivery O2 Flow Rate FiO2 09/29/16 06:13 97.5 85 16 97/56 97 Laboratory Tests Test 09/27/16 09/29/16 16:40 07:04 Urine Turbidity HAZY (CLEAR) Urine Ketones TRACE mg/dL (NEG) Urine Leukocyte Esterase MOD (NEG) Urine WBC 6 /hpf (0-5) Urine Bacteria MOD /hpf (NONE) Urine Mucus FEW /lpf (OCC) Red Blood Count 3.94 MIL/MM3 (4.00-5.30) Chloride Level 110 MEQ/L (98-107) Estimat Glomerular Filtration 88 ML/MIN (>89) Rate Aspartate Amino Transf 9 U/L (15-37) (AST/SGOT) Prealbumin 18 MG/DL (20-40) Summary of Procedures None done yet Imaging Last Impressions Shoulder X-Ray 09/26/16 0000 Signed Impressions: Service Date/Time: Monday, September 26, 2016 14:51 - CONCLUSION: No acute disease. Leonardo Mccarthy MD Head CT 09/26/16 0000 Signed Impressions: Service Date/Time: Monday, September 26, 2016 14:58 - CONCLUSION: No acute intracranial disease. Gene Wallace MD Pending results at discharge: No Medications # of Antipsychotic meds at D/C: 0 Approp Antipsych med options 1 - Minimum of three failed multiple trials of monotherapy. 2 - Documented plan to taper to monotherapy due to previous use of multiple meds OR cross-taper in progress at D/C. 3 - Documentation of augmentation of Clozapine. 4 - Justification other than those listed in allowable values 1-3, document here : Discharge Discharge Date: September 29, 2016 Discharge Diagnosis: (1) Mood disorder Diagnosis: Secondary ICD Code: F39 (2) Other mixed anxiety disorders Diagnosis: Principal ICD Code: F41.3 (3) Chronic post-traumatic stress disorder (PTSD) Diagnosis: Secondary ICD Code: F43.12 Mental Status Exam at Disch Alert oriented thin slender white female anxious tearful labile, she is otherwise normal active, mood is euthymic this somewhat distraught and dysphoric , affect shows increased range and intensity, speech regular minor increased that is mildly tangential, there are no auditory or visual hallucinations no delusions, insight and judgment is poor to fair, cognition grossly intact Pt Condition on Discharge: Stable Discharge Disposition: Discharge Home (a.m. a) Discharge Instructions Diet Instructions: As Tolerated, No Restrictions Activities you can perform: Regular-No Restrictions Scheduled Appointment: Lavon Alvarado (with patient remains in [facility], patient moved to [place] follow-up to establish mental health services in that [facility]) Discharge Time > 30 minutes Discharge/Advance Care Plan Health Problems: (1) Chronic post-traumatic stress disorder (PTSD) (2) Other mixed anxiety disorders (3) Mood disorder Goals to promote your health * To prevent worsening of your condition and complications * To maintain your health at the optimal level Directions to meet your goals Take your medications as prescribed Follow your dietary instruction Follow activity as directed Keep your appointments as scheduled Take your immunizations and boosters as scheduled If your symptoms worsen call your PCP, if no PCP go to Urgent Care Center or Emergency Room For / questions related to your inpatient stay or results of tests pending at discharge, please contact Dr. Margarito Kovacs at Smoking is Dangerous to Your Health. Avoid second hand smoking Margarito Kovacs MD September 29, 2016 10:13
[2016-09-29] MEDS: BENZTROPINE MESYLATE 1 MG TAB PO PRN (12:18)
[2016-09-29] MEDS ORDERED: BACT800T5 PO (13:41)
[2016-09-29] MEDS ORDERED: CEFT250T8 PO (13:48)
--- NOTE | 2016-10-06 10:02 | HHI.PYPN ---
Subjective Remarks This is the psychiatric progress note for September 25, 2016. Patient remains very somatically preoccupied and very drug oriented. She continues to make multiple requests of this physician for medication changes. She is anxious and distressed and appears to want medication to fix her social problems. This was discussed with her. Review of Systems ROS Limitations: Poor Historian Objective Alert: Yes [place]: Person, Place, Date, Situation Mood: Anxious Affect: Labile Memory Intact: Comment (Not assessed) Hallucinations: Other (No AVH) Delusions: No Delusion Type: Other (No delusions) Suicidal: Ideation (No SI) Homicidal: Ideation (No HI) Insight/Judgment Significantly impaired. Assessment & Plan Problem List: (1) Chronic post-traumatic stress disorder (PTSD) ICD Code: F43.12 (2) Other mixed anxiety disorders ICD Code: F41.3 (3) Mood disorder ICD Code: F39 Assessment & Plan Estimated LOS: 5 days patient remains depressed and anxious, waiting for medications to stabilize both her mood and her anxiety. Justification for Cont. Inpt. Likely to decompensate at lower level of care. Request HC Surrog/Guard Advoc?: No Subhash Cao MD October 06, 2016 10:02
== END 2016-09-29 15:05 | disposition home or self-care (01) | DRG 882 ==
LOC: H260 23:10 → H270 09-28 09:30
PROVIDERS: ADMIT Psychiatry & Neurology Psychiatry; ATTEND Psychiatry & Neurology Psychiatry
DX: F43.12 Post-traumatic stress disorder, chronic (principal); R45.851 Suicidal ideations; Z68.1 Body mass index [BMI] 19.9 or less, adult; Z91.5 Personal history of self-harm; Z81.8 Family history of other mental and behavioral disorders; F41.3 Other mixed anxiety disorders; M25.511 Pain in right shoulder; M79.7 Fibromyalgia; F17.210 Nicotine dependence, cigarettes, uncomplicated; F41.0 Panic disorder [episodic paroxysmal anxiety]
CPT/HCPCS: 70450; 73030; 80048; 80053; 80061; 81001; 83036; 84134; 84439; 84443; 84703; 85025; 87077; 87086; 87186